=== PATIENT | male | born 1995 | race African-American/Black ===

== ENCOUNTER 2024-09-07 23:49 | Emergency (ER) | payer SELFPAY ==
[~2024-09-07] VITALS: Ht 188 cm; Wt 79.5 kg
[2024-09-08 01:35] VITALS: TEMP 97.7
[2024-09-08 01:53] LABS: COVID AG,FIA SOURCE NASAL SWAB
[2024-09-08 02:05] LABS: APPEARANCE,URINE CLEAR (CLEAR); GLUCOSE, URINE (UA) NEGATIVE (NEGATIVE); LEUKOCYTE ESTERASE ,URINE NEGATIVE (NEGATIVE); NITRATE,URINE NEGATIVE (NEGATIVE); OCCULT BLOOD,URINE NEGATIVE (NEGATIVE); PH,URINE DRUG SCREEN 6.0 (5.0-8.0); SPECIFIC GRAVITIY, URINE 1.018 (1.003-1.030)
[2024-09-08 02:11] LABS: ALCOHOL, URINE DRUG SCREEN NEGATIVE (NEGATIVE); AMPHET/METH SCREEN,URINE NEGATIVE (NEGATIVE); BARBITURATE SCREEN, URINE NEGATIVE (NEGATIVE); CANNABINOID SCREEN,URINE POSITIVE (NEGATIVE); COCAINE SCREEN,URINE NEGATIVE (NEGATIVE); METHADONE SCREEN, URINE NEGATIVE (NEGATIVE)
[2024-09-08 02:25] LABS: SARS-COV2 (COVID) ANTIGEN,FIA Negative (Negative)
[2024-09-08] MEDS: LORazepam 2 MG/ML VIAL IM ONE (02:31)
[2024-09-08 05:30] VITALS: BP 136/86; PULSE 71; RESP 18; O2SAT 98
== END 2024-09-08 12:17 | disposition home or self-care (01) ==
LOC: EMS 23:56
DX: F29 Unspecified psychosis not due to a substance or known physiological condition (principal); Z78.1 Physical restraint status; Z20.822 Contact with and (suspected) exposure to COVID-19
CPT/HCPCS: 99291; 87426; 80307; 81003; 96372; J1200; J1630; J2060